=== PATIENT | male | born 1995 | race American Indian/Alaskan Native ===

== ENCOUNTER 2017-10-10 10:56 | Emergency (ER) | payer OTHER ==
[2017-10-10 11:02] VITALS: BP 132/60
[2017-10-10] MEDS ORDERED: XYLOCAINE 1% MPF 5 mL INFILTRATI ONE (11:36)
[2017-10-10] MEDS ORDERED: ZITHROMAX PO ONE (11:36)
[2017-10-10] MEDS ORDERED: ROCEPHIN IM ONE (11:36)
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
[2017-10-10 12:28] LABS: Bacteria,Urine 1+ /HPF (Negative); Bilirubin,Urine NEG (Negative); Blood,Urine MOD (Negative); Ketones,Urine NEG (Negative); Leukocyte Esterase,Urine LG (Negative); Mucus,Urine 1+ /HPF; Nitrite,Urine NEG (Negative); Protein,Urine <15 mg/dL mg/dL (Negative); Urobilinogen,Urine < 2.0 mg/dL (<2.0)
== END 2017-10-10 13:02 | disposition home or self-care (01) ==
LOC: ED 10:56
DX: R30.0 Dysuria (principal); Z88.2 Allergy status to sulfonamides
CPT/HCPCS: 81001; 87591; 96372; 99283; J0696

== ENCOUNTER 2020-08-06 16:04 | Emergency (ER) | payer BC ==
[2020-08-06 16:28] VITALS: BP 151/114
[2020-08-06] MEDS ORDERED: predniSONE 50 MG TAB PO ONE (22:20)
[2020-08-06] MEDS ORDERED: ALBUTEROL 2.5 MG/3 ML NEBU IH ONE (22:20)
[2020-08-06] MEDS ORDERED: FAMOTIDINE 20 MG TAB PO ONE (22:21)
--- NOTE | 2020-08-06 22:44 | XRay Report ---
CHEST 1 VIEW INDICATION: dyspnea. COMPARISON: None. FINDINGS: Support devices: None. Heart: Normal. Lungs/Pleura: No acute pulmonary or pleural findings. IMPRESSION: 1. No acute findings. Signer Name: Dom Multani MD Signed: 08/06/2020 10:39 PM Workstation Name: [id number]
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
== END 2020-08-06 23:45 | disposition home or self-care (01) ==
LOC: ED 16:04
DX: K21.9 Gastro-esophageal reflux disease without esophagitis (principal); R06.02 Shortness of breath; F41.1 Generalized anxiety disorder; F43.0 Acute stress reaction; Z79.899 Other long term (current) drug therapy; Z98.890 Other specified postprocedural states; Z88.2 Allergy status to sulfonamides
CPT/HCPCS: 71045; 99283; J7512

== ENCOUNTER 2022-03-10 18:28 | Emergency (ER) | payer SELFPAY ==
--- NOTE | 2022-03-10 19:44 | Emergency Department Report ---
Blank Doc - Documentation Documentation: ekg reviewed by myself and Dr Christiano Morel pet stylist (gas and oil servicer). Agree that it is early repol without sign of STEMI at this time orders placed nurse will try to bring pt to a room for eval.
[2022-03-10] MEDS ORDERED: KETOROLAC 60 MG/2 ML INJ IM ONE (19:51)
--- NOTE | 2022-03-10 19:55 | Emergency Department Report ---
ED Chest Pain HPI - General Chief Complaint: Chest Pain Stated Complaint: SOB/CP Time Seen by Provider: 03/10/22 19:47 Source: patient Mode of arrival: Ambulatory Limitations: No Limitations - History of Present Illness Initial Comments: 26-year-old male with no significant past medical history presents to the hospital complaining of left-sided chest pain and left arm heaviness since last night. Symptoms are constant without aggravating alleviating factors. He feels like there is a pressure on his left chest and his left arm feels heavy. He also endorses shortness of breath without nausea, vomiting, diaphoresis, calf tenderness, leg edema, recent travel, cough, fever, history of PE/DVT. Patient denies drug use specifically cocaine. - Related Data Previous Rx's Medication Instructions Recorded Last Taken Type Albuterol Sulfate [Proventil Hfa] 1 - 2 puff IH Q6H PRN #1 hfa.aer.ad 08/06/20 Unknown Rx Famotidine [Pepcid] 20 mg PO BID #30 tablet 08/06/20 Unknown Rx hydrOXYzine PAMOATE [Vistaril] 25 mg PO QHS PRN #20 capsule 08/06/20 Unknown Rx Ibuprofen [Motrin] 800 mg PO Q8HR PRN #30 tablet 03/10/22 Unknown Rx Allergies Allergy/AdvReac Type Severity Reaction Status Date / Time Sulfa (Sulfonamide Allergy Unknown Verified 10/10/17 10:59 Antibiotics) Heart Score - HEART Score History: Slightly suspicious EKG: Non-specific Age: < 45 Risk factors: No known risk factors Troponin: < normal limit HEART Score: 1 - EKG Read Time Time EKG Completed: 19:35 EKG Read Time: 19:39 ED Review of Systems ROS: Stated complaint: SOB/CP Other details as noted in HPI Comment: All other systems reviewed and negative ED Past Medical Hx - Surgical History Additional Surgical History: hernia repair - Social History Smoking Status: Never Smoker Substance Use Type: Alcohol - Medications Home Medications: Home Medications Medication Instructions Recorded Confirmed Last Taken Type Albuterol Sulfate [Proventil Hfa] 1 - 2 puff IH Q6H PRN #1 hfa.aer.ad 08/06/20 Unknown Rx Famotidine [Pepcid] 20 mg PO BID #30 tablet 08/06/20 Unknown Rx hydrOXYzine PAMOATE [Vistaril] 25 mg PO QHS PRN #20 capsule 08/06/20 Unknown Rx Ibuprofen [Motrin] 800 mg PO Q8HR PRN #30 tablet 03/10/22 Unknown Rx ED Physical Exam - General Limitations: No Limitations - Other Other exam information: General: No acute distress Head: Atraumatic Eyes: normal appearance ENT: Moist mucous membranes Neck: Normal appearance, no midline tenderness Chest: Clear to auscultation bilaterally, chest wall nontender CV: Regular rate and rhythm Abdomen: Soft, normal bowel sounds, nontender, nondistended, no rebound or guarding Back: Normal inspection Extremity: Normal inspection, full range of motion, no calf tenderness or leg edema Neuro: Alert O x 3, no facial asymmetry, speech clear, no gross motor sensory deficit, upper extremity weakness was not identified on examination, [id number] function intact Psych: Appropriate behavior Skin: No rash ED Course Vital Signs 03/10/22 03/10/22 19:30 22:00 Temperature 98.7 F Pulse Rate 69 Respiratory 16 16 Rate Blood Pressure 127/68 O2 Sat by Pulse 96 Oximetry - Reevaluation(s) Reevaluation #1: 03/10/22 22:06 Patient initially refused Toradol. He states that he does not really have pain but a heaviness in his left arm. He did except Motrin and p.o. potassium - Consultations Consultation #1: 03/10/22 19:54 EKG was reviewed by Dr. Morel ecommerce merchandising manager. Agrees that EKG appears to be early repolarization without signs of ST elevation [place] FAUSTINO score - Faustino Score Age > 65: (0) No Aspirin use within the Past 7 Days: (0) No 3 or more CAD Risk Factors: (0) No 2 or more Angina events in past 24 hrs: (0) No Known CAD with more than 50% Stenosis: (0) No Elevated Cardiac Markers: (0) No ST Deviation Greater than 0.5mm: (0) No FAUSTINO Score: 0 ED Medical Decision Making - Lab Data Result diagrams: 03/10/22 19:51 03/10/22 19:51 Lab Results 03/10/22 03/10/22 03/10/22 Range/Units 19:51 19:51 19:51 WBC 5.2 (4.5-11.0) K/mm3 RBC 5.06 H (3.65-5.03) M/mm3 Hgb 15.5 H (11.8-15.2) gm/dl Hct 46.0 H (35.5-45.6) % MCV 91 (84-94) fl MCH 31 (28-32) pg MCHC 34 (32-34) % RDW 12.6 L (13.2-15.2) % Plt Count 284 (140-440) K/mm3 Lymph % (Auto) 32.7 (13.4-35.0) % [place] % (Auto) 7.0 (0.0-7.3) % Eos % (Auto) 3.8 (0.0-4.3) % Baso % (Auto) 0.4 (0.0-1.8) % Lymph # (Auto) 1.7 (1.2-5.4) K/mm3 [place] # (Auto) 0.4 (0.0-0.8) K/mm3 Eos # (Auto) 0.2 (0.0-0.4) K/mm3 Baso # (Auto) 0.0 (0.0-0.1) K/mm3 Seg Neutrophils % 56.1 (40.0-70.0) % Seg Neutrophils # 2.9 (1.8-7.7) K/mm3 PT 13.7 (12.2-14.9) Sec. INR 0.95 (0.87-1.13) D-Dimer 135.00 (0-234) ng/mlDDU Sodium 139 (137-145) mmol/L Potassium 3.4 L (3.6-5.0) mmol/L Chloride 96.1 L (98-107) mmol/L Carbon Dioxide 30 (22-30) mmol/L Anion Gap 16 mmol/L BUN 12 (9-20) mg/dL Creatinine 1.2 (0.8-1.3) mg/dL Estimated GFR > 60 ml/min BUN/Creatinine Ratio 10 % Glucose 87 (75-100) mg/dL Calcium 9.4 (8.4-10.2) mg/dL Total Bilirubin 0.70 (0.1-1.2) mg/dL AST 32 (5-40) units/L ALT 23 (7-56) units/L Alkaline Phosphatase 90 (35-129) units/L Troponin T < 0.010 (0.00-0.029) ng/mL Total Protein 7.7 (6.3-8.2) g/dL Albumin 4.8 (3.9-5) g/dL Albumin/Globulin Ratio 1.7 % Urine Opiates Screen Urine Methadone Screen Ur Barbiturates Screen Ur Phencyclidine Scrn Ur Amphetamines Screen U Benzodiazepines Scrn Urine Cocaine Screen U Marijuana (THC) Screen Drugs of Abuse Note 03/10/22 Range/Units Unknown WBC (4.5-11.0) K/mm3 RBC (3.65-5.03) M/mm3 Hgb (11.8-15.2) gm/dl Hct (35.5-45.6) % MCV (84-94) fl MCH (28-32) pg MCHC (32-34) % RDW (13.2-15.2) % Plt Count (140-440) K/mm3 Lymph % (Auto) (13.4-35.0) % [place] % (Auto) (0.0-7.3) % Eos % (Auto) (0.0-4.3) % Baso % (Auto) (0.0-1.8) % Lymph # (Auto) (1.2-5.4) K/mm3 [place] # (Auto) (0.0-0.8) K/mm3 Eos # (Auto) (0.0-0.4) K/mm3 Baso # (Auto) (0.0-0.1) K/mm3 Seg Neutrophils % (40.0-70.0) % Seg Neutrophils # (1.8-7.7) K/mm3 PT (12.2-14.9) Sec. INR (0.87-1.13) D-Dimer (0-234) ng/mlDDU Sodium (137-145) mmol/L Potassium (3.6-5.0) mmol/L Chloride (98-107) mmol/L Carbon Dioxide (22-30) mmol/L Anion Gap mmol/L BUN (9-20) mg/dL Creatinine (0.8-1.3) mg/dL Estimated GFR ml/min BUN/Creatinine Ratio % Glucose (75-100) mg/dL Calcium (8.4-10.2) mg/dL Total Bilirubin (0.1-1.2) mg/dL AST (5-40) units/L ALT (7-56) units/L Alkaline Phosphatase (35-129) units/L Troponin T (0.00-0.029) ng/mL Total Protein (6.3-8.2) g/dL Albumin (3.9-5) g/dL Albumin/Globulin Ratio % Urine Opiates Screen Negative Urine Methadone Screen Negative Ur Barbiturates Screen Negative Ur Phencyclidine Scrn Negative Ur Amphetamines Screen Negative U Benzodiazepines Scrn Negative Urine Cocaine Screen Positive U Marijuana (THC) Screen Negative Drugs of Abuse Note Disclamer - EKG Data -: EKG Interpreted by Vt EKG shows normal: sinus rhythm, ST-T waves (Early repolarization) Rate: bradycardia - EKG Data When compared to previous EKG there are: previous EKG unavailable 03/10/22 22:09 repeat ekg performed at 21:[address] elevation/early repull. No signs of STEMI as per cardiology - Radiology Data Radiology results: report reviewed CHEST 2 VIEWS INDICATION / CLINICAL INFORMATION: Chest Pain. COMPARISON: 08/06/2020 FINDINGS: SUPPORT DEVICES: None. HEART / MEDIASTINUM: No significant abnormality. LUNGS / PLEURA: No significant pulmonary or pleural abnormality. No pneumothorax. ADDITIONAL FINDINGS: No significant additional findings. IMPRESSION: 1. No acute findings. No interval change. - Medical Decision Making 26-year-old male with no significant past medical history complaining of chest pain and left arm heaviness since last night with mild shortness of breath. EKG appears to have diffuse ST elevation suggestive of early repolarization as per cardiology assessment (Dr. Nicolas Morel intervention is reviewed both EKGs and agrees no ST elevation MO). Patient has unremarkable lab work with exception of mild hypokalemia. He has a negative troponin and a negative D-dimer for this even low pretest probability for pulmonary embolism as per Wells criteria). UDS positive for cocaine and patient did endorse cocaine use while drinking over the weekend and denies habitual use. Patient counseled on importance of cocaine cessation due to risk of cardiovascular disease. Patient will be treated with anti-inflammatory medication and outpatient follow-up recommended Critical Care Time: No Critical care attestation.: If time is entered above; I have spent that time in minutes in the direct care of this critically ill patient, excluding procedure time. ED Disposition Clinical Impression: Chest pain, Cocaine abuse, Hypokalemia Disposition: HOME / SELF CARE / HOMELESS Is pt being admited?: No Does the pt Need Aspirin: No Condition: Stable Instructions: Nonspecific Chest Pain, Adult, Stimulant Use Disorder-Cocaine, Hypokalemia Additional Instructions: Take the medication as prescribed. Follow-up with your doctor or doctor/clinic provided. Return if symptoms worsen as indicated by your discharge instructions. Prescriptions: Ibuprofen [Motrin] 800 mg PO Q8HR PRN #30 tablet PRN Reason: Pain , Severe (7-10) Referrals: PRIMARY CARE, [Primary Care Provider] - 3-5 Days [facility] [Provider Group] - 3-5 Days Time of Disposition: 22:09
--- NOTE | 2022-03-10 20:25 | XRay Report ---
CHEST 2 VIEWS INDICATION / CLINICAL INFORMATION: Chest Pain. COMPARISON: 08/06/2020 FINDINGS: SUPPORT DEVICES: None. HEART / MEDIASTINUM: No significant abnormality. LUNGS / PLEURA: No significant pulmonary or pleural abnormality. No pneumothorax. ADDITIONAL FINDINGS: No significant additional findings. IMPRESSION: 1. No acute findings. No interval change. Signer Name: Maritza Hernandez MD Signed: 03/10/2022 8:20 PM Workstation Name: [id number]
[2022-03-10 20:45] LABS: Basophils % (Auto) 0.4 % (0.0-1.8); Eosinophils # (Auto) 0.2 K/mm3 (0.0-0.4); Eosinophils % (Auto) 3.8 % (0.0-4.3); Hemoglobin 15.5 gm/dl (11.8-15.2); Lymphocytes # (Auto) 1.7 K/mm3 (1.2-5.4); Lymphocytes % (Auto) 32.7 % (13.4-35.0); Mean Corpuscular HGB Conc 34 % (32-34); Mean Corpuscular Volume 91 fl (84-94); Monocytes # (Auto) 0.4 K/mm3 (0.0-0.8); Platelet Count 284 K/mm3 (140-440); Red Blood Count 5.06 M/mm3 (3.65-5.03); Red Cell Distribution Width 12.6 % (13.2-15.2)
[2022-03-10 20:47] LABS: Alanine Aminotransferase 23 units/L (7-56); Albumin 4.8 g/dL (3.9-5); BUN/Creatinine Ratio 10; Blood Urea Nitrogen 12 mg/dL (9-20); Calcium 9.4 mg/dL (8.4-10.2); Hemolysis Index 10
[2022-03-10 20:53] LABS: INR 0.95 (0.87-1.13)
[2022-03-10] MEDS ORDERED: POTASSIUM CHLORIDE ER 20 MEQ TAB PO ONE (21:11)
[2022-03-10] MEDS ORDERED: IBUPROFEN 800 MG TAB PO ONE (21:13)
[2022-03-10 21:24] LABS: Amphetamine Screen,Urine Negative; Benzodiazepines Screen,Urine Negative; Cannabinoid Screen,Urine Negative; Methadone Screen,Urine Negative; Opiate Screen,Urine Negative
[2022-03-10 21:45] LABS: Cocaine Screen,Urine Positive
[2022-03-10 23:49] VITALS: BP 122/77
--- NOTE | 2022-03-11 12:31 | Electrocardiograph Report ---
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
--- NOTE | 2022-03-11 12:36 | Electrocardiograph Report ---
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 Compared to ECG 03/10/2022 19:35:01 no significant change. correlate clinically. Electronically Signed On 03-11-2022 12:35:57 EDT by Gary Prieto
== END 2022-03-10 23:49 | disposition home or self-care (01) ==
LOC: ED 18:28
DX: R07.89 Other chest pain (principal); F14.10 Cocaine abuse, uncomplicated; E87.6 Hypokalemia; Z72.89 Other problems related to lifestyle; Z88.2 Allergy status to sulfonamides; Z79.899 Other long term (current) drug therapy
CPT/HCPCS: 36415; 71046; 80053; 80307; 84484; 85025; 85379; 85610; 93005; 99284; J1885; 96372